=== PATIENT | female | born 1980 | race Caucasian/White ===

== ENCOUNTER 2016-08-11 20:49 | Emergency (ER) | payer OTHER ==
[~2016-08-11] VITALS: Ht 167.6 cm; Wt 97.5 kg
--- NOTE | ~2016-08-11 | EKG ---
[place] [address] [employer] [facility] [place] [address] ELECTROCARDIOGRAM REPORT Name: CHELSEY RUBIN Room #: DEP [facility]#: [id number] Admission: 08/11/16 Attend Phys: Discharge: 08/12/16 Date of : 84 Report #: [id number] THIS REPORT FOR: //name// [facility] ED Test Date: 2016-08-11 Test Time: 21:33:00 Pat Name: CHELSEY RUBIN Department: Room: Gender: F Mold Chipper: EMMY : 1980 Requested By: Rodrigue Delcid Order Number: [id number] MD: Lonnie Shelley Measurements Intervals [place] Rate: 100 P: 8 NE: 160 QRS: 1 QRSD: 98 T: 38 QT: 350 QTc: 452 Interpretive Statements Sinus tachycardia Low voltage, precordial leads RSR' in V1 or V2, right VCD or RVH No previous ECG available for comparison Electronically Signed On 08-12-2016 7:36:06 CDT by Lonnie Shelley [email or web address] <ELECTRONICALLY SIGNED> By: Lonnie Shelley MD, [facility] 08/12/16 0736 32 32 Lonnie Shelley MD, [facility] /EPI
[~2016-08-11 20:49] MED LIST: LEVOTHYROXINE 0.1 MG PO; NORCO 5-325 TA1 EACH PO; NORFLEX100 MG PO
[2016-08-11] MEDS ORDERED: DAY TIME COLD-237 ML PO (21:20)
[2016-08-11 21:41] LABS: ABSOLUTE NEUTROPHILS 7.2 thou/uL (1.4-8.2); BASOPHILS 0.4 % (0.0-2.0); EOSINOPHILS 5.6 % (0.0-3.0); HEMATOCRIT 38.9 % (37.0-47.0); HEMOGLOBIN 13.3 gm/dL (12.0-15.0); LYMPHOCYTES 14.7 % (24.0-44.0); MCH 28.4 pg (26.0-34.0); MCHC 34.2 g/dL (28.0-37.0); MCV 83.3 fL (80.0-100.0); PLATELET COUNT 259 thou/uL (150-400); POLYS 69.3 % (36.0-66.0); RBC 4.67 mil/uL (4.20-5.00); RDW 13.5 % (10.5-14.5); WBC 10.4 thou/uL (4.0-11.0)
[2016-08-11 21:45] LABS: MANUAL DIFF NO
[2016-08-11 21:52] LABS: CALCIUM 8.2 mg/dL (8.5-10.1); CREATININE 0.8 mg/dL (0.6-1.3); POTASSIUM 3.6 mmol/L (3.5-5.1)
[2016-08-11 21:56] LABS: ALBUMIN 3.1 g/dL (3.4-5.0); TOTAL BILIRUBIN 0.3 mg/dL (<0.1-1.0); TOTAL PROTEIN 7.3 g/dL (6.4-8.2)
[2016-08-11 22:30] LABS: URINE BILIRUBIN NEGATIVE (Negative); URINE BLOOD 1+ (Negative); URINE COLOR YELLOW; URINE GLUCOSE-RANDOM* NEGATIVE (Negative); URINE KETONES NEGATIVE (Negative); URINE LEUKOCYTES-REFLEX NEGATIVE (Negative); URINE PROTEIN (DIPSTICK) NEGATIVE (Negative); URINE SPECIFIC GRAVITY 1.015 (1.003-1.035); URINE UROBILINOGEN 0.2 E.U./dl (0.2-1.0)
[2016-08-11 22:41] LABS: CASTS None Seen /LPF (None Seen); SQUAMOUS 0-3 Few /LPF (0-3)
[2016-08-11 22:42] LABS: CRYSTALS None Seen /LPF (None Seen); URINE RBC 0-2 Rare /HPF (0-2); URINE WBC-REFLEX 0-5 Rare /HPF (0-5)
[2016-08-11] MEDS ORDERED: NAPROSYN500 MG PO (22:46)
[2016-08-11] MEDS ORDERED: ACETAMINOPHEN-1 EAC1 PO (22:46)
[2016-08-11] MEDS ORDERED: ZOFRAN ODT4 MG PO (22:46)
[2016-08-11 23:01] VITALS: BP 103/64
== END 2016-08-12 07:23 | disposition home or self-care (01) ==
LOC: ER 20:49
PROVIDERS: Emergency Medicine
DX: B34.9 Viral infection, unspecified (principal); R11.2 Nausea with vomiting, unspecified; R19.7 Diarrhea, unspecified; E03.9 Hypothyroidism, unspecified; M54.40 Lumbago with sciatica, unspecified side

== ENCOUNTER 2017-06-14 09:13 | Emergency (ER) | payer OTHER ==
[~2017-06-14] VITALS: Ht 162.6 cm; Wt 90.7 kg
[~2017-06-14 09:13] MED LIST changes: +ACETAMINOPHEN-1 EAC1 PO; +DAY TIME COLD-237 ML PO; +NAPROSYN500 MG PO; +ZOFRAN ODT4 MG PO
[2017-06-14] MEDS ORDERED: OSELB75 PO (09:34)
[2017-06-14] MEDS ORDERED: IBUPROFEN 800800 M1 PO (09:34)
== END 2017-06-14 09:55 | disposition home or self-care (01) ==
LOC: ER 09:13
DX: J02.9 Acute pharyngitis, unspecified (principal); R51 Headache; R50.9 Fever, unspecified; E03.9 Hypothyroidism, unspecified; M54.30 Sciatica, unspecified side

== ENCOUNTER 2020-02-24 13:57 | Emergency (ER) | payer OTHER ==
[~2020-02-24] VITALS: Ht 165.1 cm; Wt 77.1 kg
[~2020-02-24 13:57] MED LIST changes: +IBUPROFEN 800800 M1 PO; +OSELB75 PO
[2020-02-24] MEDS ORDERED: VOLTAREN GEL 1100 G2 TOP (15:54)
[2020-02-24] MEDS ORDERED: NORCO 10-325 T1 EACH PO (15:54)
[2020-02-24 16:20] VITALS: BP 160/46
== END 2020-02-24 16:20 | disposition home or self-care (01) ==
LOC: ER 13:57
DX: M25.562 Pain in left knee (principal); M25.561 Pain in right knee; E03.9 Hypothyroidism, unspecified; Z79.899 Other long term (current) drug therapy; W01.0XXA Fall on same level from slipping, tripping and stumbling without subsequent striking against object, initial encounter; Y93.89 Activity, other specified; Y92.89 Other specified places as the place of occurrence of the external cause; Y99.8 Other external cause status